=== PATIENT | male | born 1940 | race Caucasian/White ===

== ENCOUNTER → 2023-04-14 09:59 | Outpatient (REF) | payer MEDICARE, BC, SELFPAY | LOC: SDSPAT 09:59 | PROVIDERS: ATTENDING PHYSICIAN Surgery; FAMILY PHYSICIAN Family Medicine; OTHER PHYSICIAN Internal Medicine Cardiovascular Disease | DX: K64.2 Third degree hemorrhoids (principal) | CPT/HCPCS: 36415; 93005 ==